=== PATIENT | male | born 1990 | race Caucasian/White ===

== ENCOUNTER 2019-01-30 22:56 | Emergency (ER) | payer OTHER ==
[2019-01-30] MEDS ORDERED: Sodium Chloride 0.9% 10 ML Syringe FLUSH PRN (22:59)
[2019-01-30] MEDS ORDERED: Diphtheria,Pertussis(Acell),Tetanus Vaccine 0.5 ML SDV IM ONE (23:09)
[2019-01-30] MEDS ORDERED: Morphine 4 MG/ML Syringe IVPUSH ONE (23:29)
[2019-01-30] MEDS ORDERED: Ondansetron 4 MG/2 ML SDV IVPUSH ONE (23:29)
[2019-01-30] MEDS ORDERED: Morphine 2 MG/ML Syringe IVPUSH ONE (23:35)
--- NOTE | 2019-01-30 23:49 | EDM.PDOC ---
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 He is left-hand dominant. He brought the amputated tips of the fingers and they are in bags over ice. He rates his pain as a 5/10. It is a sharp and stinging pain. He's had no nausea or vomiting. He's had no antecedent problems. His last meal was about 5-6 hours ago but he did have a glass and a half of water at approximately 10:45 PM. He has been NPO since then. There are no other associated signs or symptoms. There are no other modifying factors. 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 Social & Family History - Tobacco Use Smoking Status *Q: Current Every Day Smoker - Alcohol Use Alcohol Use History: Yes Alcohol Use Frequency: Weekly - Living Situation & Occupation Occupation: Employed (works repairing machinery for factories) Review of Systems - Review of Systems Review Of Systems: See Below Constitutional: Reports: No Symptoms Eyes: Reports: No Symptoms Ears: Reports: No Symptoms Nose: Reports: No Symptoms Mouth/Throat: Reports: Other (sore throat this weekend but that has resolved.) Respiratory: Reports: No Symptoms Cardiovascular: Reports: No Symptoms GI/Abdominal: Reports: No Symptoms Genitourinary: Reports: No Symptoms Musculoskeletal: Reports: Other (amputations of the tips of his left second and third fingers. He is left-hand dominant.) Skin: Reports: Other (open wounds of the left second and third fingers.) Neurological: Reports: No Symptoms ED EXAM, GENERAL - Physical Exam Exam: See Below Exam Limited By: No Limitations General Appearance: Alert, WD/WN, Mild Distress (pain) Eye Exam: Bilateral Eye: EOMI, Normal Inspection, PERRL Ears: Normal External Exam, Hearing Grossly Normal Nose: Normal Inspection, Normal Mucosa, No Blood Throat/Mouth: Normal Inspection, Normal Voice, No Airway Compromise Head: Atraumatic, Normocephalic Neck: Normal Inspection, Supple, Non-Tender, Full Range of Motion Respiratory/Chest: No Respiratory Distress, Lungs Clear, Normal Breath Sounds, No Accessory Muscle Use Cardiovascular: Normal Peripheral Pulses, Regular Rate, Rhythm, No JVD Peripheral Pulses: 2+: Radial (L), Radial (R) GI/Abdominal: Normal Bowel Sounds, Soft, Non-Tender, No Mass Back Exam: Normal Inspection Extremities: Normal Capillary Refill, Other (amputation of the tips of the left second and third fingers just distal to the DIP joints.) Neurological: Alert, Oriented, CN II-XII Intact, Normal Cognition, No Motor/ Sensory Deficits Psychiatric: Normal Affect Skin Exam: Warm, Dry, Normal Color, No Rash Lymphatic: No Adenopathy Course - Vital Signs Last Recorded V/S: Last Vital Signs Temp 36.8 C 01/30/19 22:58 Pulse 71 01/30/19 22:58 Resp 18 01/30/19 22:58 BP 130/84 01/30/19 22:58 Pulse Ox 100 01/30/19 22:58 - Orders/Labs/Meds Orders: Active Orders 24 hr Category Date Time Status Vaccines to be Administered [RC] PER UNIT ROUTINE Care 01/30/19 23:09 Active NPO Now [Nothing per Oral Now Diet] [DIET] Diet 01/31/19 Breakfast Ordered Hand Comp Min 3V Lt [CR] Stat Exams 01/30/19 22:59 Taken Sodium Chloride 0.9% [Saline Flush] Med 01/30/19 22:59 Active 10 ml FLUSH ASDIRECTED PRN Peripheral IV Insertion Adult [OM.PC] Routine Oth 01/30/19 22:59 Ordered Medication Orders Sodium Chloride (Saline Flush) 10 ml FLUSH ASDIRECTED PRN PRN Reason: Keep Vein Open Last Admin: 01/30/19 23:28 Dose: 10 ml Labs: Laboratory Tests 01/30/19 01/30/19 Range/Units 23:15 23:15 WBC 11.2 (4.5-12.0) X10-3/uL RBC 5.12 (4.30-5.75) x10(6)uL Hgb 15.7 (13.5-17.8) g/dL Hct 44.7 (30.0-51.3) % MCV 87.5 (80-96) fL MCH 30.7 (27.7-33.6) pg MCHC 35.1 (32.2-35.4) g/dL RDW 12.2 (11.5-15.5) % Plt Count 278 (125-369) X10(3)uL MPV 8.4 (7.4-10.4) fL Neut % (Auto) 53.9 (46-82) % Lymph % (Auto) 32.3 (13-37) % Hoke % (Auto) 8.8 (4-12) % Eos % (Auto) 5 (1.0-5.0) % Baso % (Auto) 0 (0-2) % Neut # (Auto) 6.1 (1.6-8.3) # Lymph # (Auto) 3.6 (0.6-5.0) # Hoke # (Auto) 1.0 (0.0-1.3) # Eos # (Auto) 0.5 (0.0-0.8) # Baso # (Auto) 0.0 (0.0-0.2) # Sodium 142 (135-145) mmol/L Potassium 3.4 L (3.5-5.3) mmol/L Chloride 103 (100-110) mmol/L Carbon Dioxide 27 (21-32) mmol/L BUN 13 (7-18) mg/dL Creatinine 1.1 (0.70-1.30) mg/dL Est Cr Clr Drug Dosing TNP Estimated GFR (MDRD) > 60 (>60) BUN/Creatinine Ratio 11.8 (9-20) Glucose 122 H (80-116) mg/dL Calcium 9.0 (8.6-10.2) mg/dL Meds: Medications Generic Name Dose Route Start Last Admin Trade Name Freq PRN Reason Stop Dose Admin Sodium Chloride 10 ml 01/30/19 22:59 01/30/19 23:28 Saline Flush FLUSH 10 ml ASDIRECTED PRN Administration Keep Vein Open Discontinued Medications Generic Name Dose Route Start Last Admin Trade Name Freq PRN Reason Stop Dose Admin Cefazolin Sodium 1 gm 01/30/19 23:55 01/31/19 00:04 Ancef IVPUSH 01/30/19 23:56 1 gm ONETIME ONE Administration Diphtheria/Tetanus/Acell Pertussis 0.5 ml 01/30/19 23:09 01/30/19 23:28 Adacel IM 01/30/19 23:10 0.5 ml .ONCE ONE Administration Morphine Sulfate 4 mg 01/30/19 23:29 Morphine IVPUSH 01/30/19 23:30 ONETIME ONE Morphine Sulfate 4 mg 01/30/19 23:35 01/30/19 23:42 Morphine IVPUSH 01/30/19 23:36 4 mg ONETIME ONE Administration Ondansetron HCl 4 mg 01/30/19 23:29 01/30/19 23:42 Zofran IVPUSH 01/30/19 23:30 4 mg ONETIME ONE Administration - Radiology Interpretation Free Text/Narrative:: x-ray of the left hand shows amputation at the level of the proximal aspect of the distal phalanx of the second and third fingers. - Re-Assessments/Exams Free Text/Narrative Re-Assessment/Exam: 01/30/19 23:30: I discussed the patient's case with Dr. Andres, surgeon transportation maintenance supervisor, and he recommends that the patient be transferred to a facility with hand surgery specially services available. I discussed this with the patient and he would prefer that I call [facility] in [place]. I have placed a call to the hand surgeon and I am awaiting him to call me back from [facility]. The patient has been given a TD Immunization to bring his tetanus immunization status up-to-date. I have also given the patient morphine 4 mg IV and Zofran 4 mg IV for his pain. I have also ordered Ancef 1 g IV to be given. We will keep the patient's hand dressed with a sterile supportive dressing. 01/31/19 00:29: I discussed the patient's case with Dr. Donovan, hand surgeon at [facility] in [place], and he will accept the patient in transfer. The patient will be transferred via POV to the emergency department at [facility] in [place]. He is to remain NPO. Departure - Departure Time of Disposition: 00:40 Disposition: DC/Tfer to Acute Hospital 02 Condition: Good Clinical Impression: Amputation of left index finger, Amputation of index finger - Discharge Information Referrals: PCP,None [Primary Care Provider] - Forms: ED Department Discharge Additional Instructions: Go directly to the emergency department at [facility] to see Dr. Donovan, hand surgery aide. You should not eat or drink anything until cleared to do so by Dr. Donovan. - My Orders Last 24 Hours: My Active Orders 01/30/19 22:59 Hand Comp Min 3V Lt [CR] Stat Sodium Chloride 0.9% [Saline Flush] 10 ml FLUSH ASDIRECTED PRN Peripheral IV Insertion Adult [OM.PC] Routine 01/30/19 23:09 Vaccines to be Administered [RC] PER UNIT ROUTINE 01/31/19 Breakfast NPO Now [Nothing per Oral Now Diet] [DIET] - Assessment/Plan Last 24 Hours: My Active Orders 01/30/19 22:59 Hand Comp Min 3V Lt [CR] Stat Sodium Chloride 0.9% [Saline Flush] 10 ml FLUSH ASDIRECTED PRN Peripheral IV Insertion Adult [OM.PC] Routine 01/30/19 23:09 Vaccines to be Administered [RC] PER UNIT ROUTINE 01/31/19 Breakfast NPO Now [Nothing per Oral Now Diet] [DIET]
[2019-01-30] MEDS ORDERED: ceFAZolin 1 GM Vial IVPUSH ONE (23:55)
--- NOTE | 2019-02-01 09:34 | CR ---
INDICATION: Amputation portions of two fingers left hand, caught in machine. LEFT HAND: Three views of the left hand were obtained and revealed amputation of the distal second and third fingers at the level of the distal shaft of the index finger and at the level of the proximal metaphysis of the third finger. No other bone or joint abnormality was identified. MTDD
== END 2019-01-31 00:40 ==
LOC: FB.ED 22:56
DX: S68.121A Partial traumatic metacarpophalangeal amputation of left index finger, initial encounter (principal); F17.210 Nicotine dependence, cigarettes, uncomplicated; Z23 Encounter for immunization; W26.8XXA Contact with other sharp object(s), not elsewhere classified, initial encounter
CPT/HCPCS: 36415; 73130; 80048; 85025; 90471; 90715; 96374; 96375; 99285; J0690; J2270; J2405